=== PATIENT | male | born 1990 | race Caucasian/White ===

== ENCOUNTER 2022-07-04 14:11 | Emergency (ER) | payer BC, SELFPAY ==
[2022-07-04] VITALS (8 sets, daily range): BP systolic 116–162; BP diastolic 76–93; PULSE 103–121; RESP 18–35; TEMP 36.9; O2SAT 97–99
--- NOTE | ~2022-07-04 | XR_ITS ---
EXAMINATION: XR chest 2V 07/04/2022 14:45 INDICATION: Shortness of breath. Left-sided chest pain. PROCEDURE: 2 view chest COMPARISON: No prior studies for comparison. FINDINGS: The lungs are clear. The cardiomediastinal silhouette is within normal limits. There are no pleural effusions. There is no pneumothorax suspected. IMPRESSION: 1: NO ACUTE CARDIOPULMONARY DISEASE. Reviewed, dictated and finalized at location [facility]
--- NOTE | 2022-07-04 14:14 | ECG_ITS ---
Measurements Intervals [place] Rate: 110 P: 45 MS: 132 QRS: 76 QRSD: 83 T: 5 QT: 317 QTc: 429 Interpretive Statements SINUS TACHYCARDIA POSSIBLE RIGHT VENTRICULAR CONDUCTION DELAY [RSR (QR) IN V1/V2] NONSPECIFIC T-WAVE ABNORMALITY ABNORMAL ECG NO PREVIOUS ECG AVAILABLE FOR COMPARISON Electronically Signed On 07-05-2022 13:35:53 [employer] by Heath Goncalves M.D.
[2022-07-04 14:46] LABS: Basophils Percent Auto 0.2 % (0.2-1.2); Eosinophils Absolute Auto 0.1 K/mm3 (0-0.3); Eosinophils Percent Auto 0.5 % (0-4.4); Hematocrit 44.1 % (42.0-52.0); Hemoglobin 15.3 g/dL (14.0-18.0); Immature Granulocyte Absolute 0.03 K/mm3 (0.00-0.031); Immature Granulocyte Percent A 0.3 % (0-0.5); Lymphocytes Absolute Auto 0.54 K/mm3 (0.9-3.2); Lymphocytes Percent Auto 5.2 % (18.3-44.2); Mean Corpuscular HGB Conc 34.7 g/dl (32-36); Mean Corpuscular Hemoglobin 30.6 pg (26-34); Mean Corpuscular Volume 88.2 fl (80-100); Mean Platelet Volume 10.5 fl (7.4-10.4); Monocytes Absolute Auto 0.6 K/mm3 (0.1-0.6); Monocytes Percent Auto 5.6 % (2.6-8.5); Neutrophils Absolute Auto 9.1 K/mm3 (1.3-6.7); Neutrophils Percent Auto 88.2 % (45.5-73.1); Platelet Count Result 211 k/mm3 (150-375); Red Cell Distribution Width 13.1 % (11.5-14.5); White Blood Count 10.4 K/mm3 (4.5-10.0)
[2022-07-04 14:57] LABS: Partial Thromboplastin Time 26.5 SECONDS (22.3-36.8)
[2022-07-04 15:00] LABS: Alanine Aminotransferase 60 U/L (6-50); Albumin Level 4.7 g/dL (3.5-5.1); Alkaline Phosphatase 78 U/L (38-126); Anion Gap 7 mmol/L (8-16); Aspartate Amino Transferase 35 U/L (17-59); Bilirubin,Total 1.3 mg/dL (0.2-1.3); Blood Urea Nitrogen 23 mg/dL (9-20); Calcium 8.9 mg/dL (8.4-10.2); Carbon Dioxide 25 mmol/L (22-30); Chloride 105 mmol/L (98-107); Estimated CRCL calculation 96 ml/min; Estimated Glomerular Filt Rate > 60; Glucose 110 mg/dL (65-110); Potassium 4.3 mmol/L (3.4-5.0); Sodium 137 mmol/L (137-145)
[2022-07-04 15:11] LABS: Troponin I < 0.012 ng/mL (0.000-0.034)
[2022-07-04] MEDS: SODIUM CHLORIDE 0.9% IV 1,000 ML 999 ML IV CONT (15:52)
[2022-07-04] MEDS: ONDANSETRON INJ 4 MG/2 ML VIAL IV PUSH (15:52)
[2022-07-04] MEDS: KETOROLAC 30 MG/ML VIAL (*BKC) IV PUSH (15:53)
--- NOTE | 2022-07-04 17:15 | ED.GENADULT ---
HPI - General Adult General Chief complaint: Shortness of Breath/Dyspnea Stated complaint: MULT C/O Time Seen by Provider: 07/04/22 14:48 History of Present Illness HPI narrative: Patient is a 32-year-old male who presents ER with multiple issues. Reports today he began vomiting and was also having diarrhea. No abdominal discomfort. No blood in stool or emesis. Denies fevers or chills or sweats but does feel warm. He reports this is caused him to have some left-sided chest discomfort. He reports the discomfort has been ongoing for a week but is worse today after vomiting. Left side and worse with physical movements. No exertional symptoms. He also reports he is slightly dyspneic at this time. No productive cough. Does not believe he aspirated on any of his gastric contents. No history of heart disease. Related Data Allergies Allergy/AdvReac Type Severity Reaction Status Date / Time No Known Allergies Allergy Verified 07/04/22 15:38 Review of Systems Review of Systems: All systems reviewed & are unremarkable except as noted in HPI and below Constitutional: Constitutional: Denies chills, Reports fatigue and Denies fever(s) ENT: Denies nasal congestion and Denies sore throat Cardiovascular: Cardiovascular: Reports chest pain, Denies rapid heart rate and Denies radiating jaw, neck or arm pain Respiratory: Respiratory: Denies cough, Reports dyspnea and Denies wheezing Gastrointestinal: Gastrointestinal: Denies abdominal pain, Reports diarrhea, Reports nausea and Reports vomiting Genitourinary: Genitourinary: Denies dysuria and Denies urinary frequency PMFSH Past Medical History Medical History (Updated 07/04/22 @ 18:30 by Dano Mendoza MD) Hypertension Hypothyroidism Surgical History Surgical History (Updated 07/04/22 @ 17:17 by Dano Mendoza MD) No pertinent past surgical history Exam Narrative: GENERAL: Well-appearing, well-nourished, and in no acute distress. HEAD: Normocephalic, atraumatic. EYES: PERRL and EOMI. ENT: Mucous membranes moist. CHEST: Clear to auscultation. No respiratory distress. HEART: Tachycardic and regular. Normal peripheral pulses. ABDOMEN: Soft, nontender, nondistended. EXTREMITIES: Normal range of motion. No edema. SKIN: Warm, dry, no rash. NEURO: Alert and oriented x3. PSYCH: Normal mood and affect. Course Course Emergency Course: Pain resolved with Toradol. Troponin negative x2. Patient informed of results. Feels comfortable discharge home. Vital Signs Vital signs: Vital Signs Temperature 98.4 F 07/04/22 14:16 Pulse Rate 121 H 07/04/22 14:16 Respiratory Rate 22 H 07/04/22 14:16 Blood Pressure 148/93 H 07/04/22 14:16 Pulse Oximetry 99 07/04/22 14:16 Oxygen Delivery Room Air 07/04/22 14:16 Temperature 98.4 F 07/04/22 14:16 Pulse Rate 117 H 07/04/22 17:17 Respiratory Rate 23 H 07/04/22 17:17 Blood Pressure 116/76 07/04/22 16:38 Pulse Oximetry 98 07/04/22 17:17 Oxygen Delivery Room Air 07/04/22 14:16 Medical Decision Making Vital Signs Vital Signs: Vital Signs Temperature 98.4 F 07/04/22 14:16 Pulse Rate 121 H 07/04/22 14:16 Respiratory Rate 22 H 07/04/22 14:16 Blood Pressure 148/93 H 07/04/22 14:16 Pulse Oximetry 99 07/04/22 14:16 Oxygen Delivery Room Air 07/04/22 14:16 Temperature 98.4 F 07/04/22 14:16 Pulse Rate 117 H 07/04/22 17:17 Respiratory Rate 23 H 07/04/22 17:17 Blood Pressure 116/76 07/04/22 16:38 Pulse Oximetry 98 07/04/22 17:17 Oxygen Delivery Room Air 07/04/22 14:16 Lab Data 07/04/22 14:34 07/04/22 14:34 Labs: Lab Results 07/04/22 07/04/22 07/04/22 Range/Units 14:34 14:34 14:34 WBC 10.4 H (4.5-10.0) K/mm3 RBC 5.00 (4.6-6.20) M/mm3 Hgb 15.3 (14.0-18.0) g/dL Hct 44.1 (42.0-52.0) % MCV 88.2 (80-100) fl MCH 30.6 (26-34) pg MCHC 34.7 (32-36) g/dl RDW 13.1 (11.5-14.5) %
[2022-07-04 18:11] LABS: Troponin I < 0.012 ng/mL (0.000-0.034)
== END 2022-07-04 18:55 | disposition home or self-care (01) ==
PROVIDERS: Emergency Provider Emergency Medicine; PCP Family Medicine
DX: R11.2 Nausea with vomiting, unspecified (principal); R07.89 Other chest pain; I10 Essential (primary) hypertension; E03.9 Hypothyroidism, unspecified; R00.0 Tachycardia, unspecified; R94.31 Abnormal electrocardiogram [ECG] [EKG]
CPT/HCPCS: 36415; 71046; 80053; 84484; 85025; 85610; 85730; 93005; 96361; 96374; 96375; 99284; J1885; J2405; J7030